=== PATIENT | female | born 1955 | race Caucasian/White ===

== ENCOUNTER 2024-04-11 20:03 | Emergency (ER) | payer MEDICARE, OTHER ==
[2024-04-11] MEDS ORDERED: Sodium Chloride 0.9% 10 ML Syringe FLUSH PRN (20:19)
[2024-04-11 20:56] LABS: EOSINOPHILS PERCENT AUTO 1.7 % (1.0-3.0); HEMATOCRIT 41.8 % (37.0-47.0); HEMOGLOBIN 13.4 g/dL (12.0-16.0); MEAN CORPUSCULAR HEMOGLOBIN 30.2 pg (27.0-34.0); MEAN CORPUSCULAR HGB CONC 32.1 g/dL (33.0-35.0); MEAN CORPUSCULAR VOLUME 94.4 fL (80-100); MONOCYTES PERCENT AUTO 6.2 % (2-8); NEUTROPHILS PERCENT AUTO 60.1 % (42.2-75.2); PLATELET COUNT,PLT 334 10^3/uL (150-450); RED BLOOD CELL COUNT 4.43 10^6/uL (4.2-5.4); WHITE BLOOD CELL COUNT,WBC 7.7 10^3/uL (5.0-10.0)
[2024-04-11 21:15] LABS: B-TYPE NATRIURETIC PEPTIDE,BNP 10 pg/ml (0-100)
[2024-04-11 21:27] LABS: A/G RATIO 0.9; ALANINE AMINOTRANSFERASE,ALT 38 U/L (14-59); ALBUMIN 3.5 g/dL (3.4-5.0); ALKALINE PHOSPHATASE 74 U/L (46-116); ANION GAP 15.2 mEq/L (7-13); ASPARTATE AMNIOTRANSFERASE,AST 27 U/L (15-37); BILIRUBIN TOTAL 0.3 mg/dL (0.2-1.0); BLOOD UREA NITROGEN,BUN 15 mg/dL (7-18); BUN/CREATININE RATIO 12.1 (No establ ref range); CALCIUM 9.5 mg/dL (8.5-10.1); CARBON DIOXIDE,CO2 26 mmol/L (21-32); CHLORIDE,CL 102 mmol/L (98-107); CREATININE 1.24 mg/dL (0.55-1.02); GLUCOSE RANDOM 157 mg/dL (70-99); MAGNESIUM 1.3 mg/dL (1.8-2.4); POTASSIUM,K 4.2 mmol/L (3.5-5.1); PROTEIN TOTAL,TP 7.4 g/dL (6.4-8.2); SODIUM,NA 139 mmol/L (136-145); TSH ULTRASENSITIVE 6.36 uIU/mL (0.36-3.74)
[2024-04-11 21:28] LABS: ESTIMATED GFR 48 mL/min (>=60)
[2024-04-11] MEDS: Magnesium Sulfate/Water 2 GM in Premix Bag 1 BAG IV ONE (21:40)
[2024-04-11] MEDS: Lactated Ringers 1,000 ML IV ONE (21:40)
[2024-04-11] MEDS: Ketorolac 30 MG/ML SDV IVPUSH ONE (22:36)
== END 2024-04-12 00:57 | disposition home or self-care (01) ==
LOC: DL.ED 20:03
DX: R55 Syncope and collapse (principal); E83.42 Hypomagnesemia; R94.6 Abnormal results of thyroid function studies
CPT/HCPCS: 36415; 70450; 73110-RT; 73560-RT; 73610-LT; 80053; 83735; 83880; 84443; 84484; 85025; 93005; 93010; 96365; 96366; 96375; 99284; 99285-25; J1885; J3475; J7120